=== PATIENT | male | born 1965 | race Hispanic/Latino ===

== ENCOUNTER 2021-03-25 23:23 | Emergency (ER) | payer OTHER ==
[~2021-03-25] VITALS: Ht 188 cm; Wt 81.6 kg
[2021-03-25] MEDS ORDERED: IBUP-2070 PO (23:57)
[2021-03-25 23:59] VITALS: BP 131/68
== END 2021-03-26 00:05 | disposition home or self-care (01) ==
LOC: EDH 23:23
DX: S83.91XA Sprain of unspecified site of right knee, initial encounter (principal); W11.XXXA Fall on and from ladder, initial encounter; Y93.89 Activity, other specified; Y92.89 Other specified places as the place of occurrence of the external cause; Y99.8 Other external cause status
CPT/HCPCS: 99282

== ENCOUNTER → 2021-08-24 | Outpatient (CLI) | payer OTHER ==
[~2021-08-24] MED LIST: IBUP-2070 PO
== END | disposition home or self-care (01) ==
LOC: RAH 09:47
PROVIDERS: ATTEND Internal Medicine
DX: Z13.6 Encounter for screening for cardiovascular disorders (principal)
CPT/HCPCS: 75571